=== PATIENT | male | born 1970 | race Caucasian/White ===

== ENCOUNTER 2019-08-31 20:20 | Emergency (ER) | payer OTHER ==
[~2019-08-31] VITALS: Ht 188 cm; Wt 79.4 kg
[2019-08-31] MEDS ORDERED: OMEPRAZOLE20 MG PO (21:32)
--- NOTE | 2019-09-01 11:24 | EKG ---
[facility] [address] [facility] [place] [address] Signed Normal sinus rhythm Possible Left atrial enlargement Left ventricular hypertrophy Abnormal ECG No previous ECGs available Confirmed by NIGEL SHOOK MD ([id number] on 09/01/2019 11:24:31 AM Electronically Signed By: NIGEL SHOOK MD 09/01/19 1124 PATIENT NAME: MEDARDO SAUER Electrocardiogram DATE OF : 66 PHYSICIAN: NIGEL SHOOK MD REPORT #: [id number] REPORT IS CONFIDENTIAL AND NOT TO BE RELEASED WITHOUT AUTHORIZATION
== END 2019-08-31 21:58 | disposition home or self-care (01) ==
LOC: ED 20:20
DX: R07.9 Chest pain, unspecified (principal); F17.200 Nicotine dependence, unspecified, uncomplicated
CPT/HCPCS: 71045; 80053; 83735; 84484; 85025; 93005; 93010; 96374; 96375; 99285-25; J1170; J2405